=== PATIENT | male | born 1955 | race Caucasian/White ===

== ENCOUNTER 2020-08-02 08:13 | Emergency (ER) | payer OTHER ==
[2020-08-02] MEDS ORDERED: Ondansetron 4 MG/2 ML SDV IVPUSH ONE (08:38)
[2020-08-02] MEDS ORDERED: HYDROmorphone 0.5 MG/0.5 ML Syringe IVPUSH ONE ×2 (08:38→09:51)
[2020-08-02] MEDS ORDERED: Sodium Chloride 0.9% 10 ML Syringe FLUSH PRN (08:38)
[2020-08-02] MEDS ORDERED: FLU VACC QS2020-21(6MOS UP)/PF 60 MCG/0.5 ML SYRINGE IM ONE (08:45)
[2020-08-02] MEDS ORDERED: Sodium Chloride 0.9% 1,000 ML IV SCH (08:45)
--- NOTE | 2020-08-02 09:04 | EDM.PDOC ---
ED HPI GENERAL MEDICAL PROBLEM - General Chief Complaint: Genitourinary Problem Stated Complaint: LOW ABD AND LOW BACK PAIN/NAUSEA Time Seen by Provider: 08/02/20 08:32 Source of Information: Reports: Patient, RN Notes Reviewed - History of Present Illness INITIAL COMMENTS - FREE TEXT/NARRATIVE: 65 yr old male comes in with R back and flank pain radiating to R groin. This started during the night. He did have nausea, vomiting and diarrhea yesterday but that is all better. No current fever or chills. No chest pain or difficulty breathing. Right Lower Back Pain Score (Numeric/FACES): 8 - Related Data Allergies Allergy/AdvReac Type Severity Reaction Status Date / Time hydrocodone Allergy Itching Verified 08/02/20 08:22 Home Meds: Home Meds Acetaminophen/oxyCODONE [Percocet 325-5 MG] 1 each PO Q6HR PRN #20 tab 08/02/20 [Rx] Tamsulosin [Tamsulosin 24 Hr] 0.4 mg PO DAILY #7 cap.er 08/02/20 [Rx] Past Medical History HEENT History: Reports: Glaucoma Genitourinary History: Reports: Renal Calculus - Past Surgical History Male Surgical History: Reports: Lithotripsy ([facility]) Social & Family History - Tobacco Use Tobacco Use Status *Q: Current Every Day Tobacco User Years of Tobacco use: 12 Packs/Tins Daily: 1 - Caffeine Use Caffeine Use: Reports: Coffee - Recreational Drug Use Recreational Drug Use: Yes Drug Use in Last 12 Months: No Recreational Drug Type: Reports: Marijuana/Hashish ED ROS GENERAL - Review of Systems Review Of Systems: See Below Constitutional: Denies: Fever, Chills, Diaphoresis HEENT: Reports: No Symptoms Respiratory: Denies: Shortness of Breath Cardiovascular: Denies: Chest Pain GI/Abdominal: Reports: Abdominal Pain, Diarrhea (yesterday), Nausea, Vomiting (yesterday) Musculoskeletal: Reports: Back Pain (R sided) Skin: Reports: No Symptoms Neurological: Reports: No Symptoms ED EXAM, RENAL/ - Physical Exam Exam: See Below General Appearance: Alert, Moderate Distress Head: Atraumatic Neck: Supple Respiratory/Chest: No Respiratory Distress, Lungs Clear, Normal Breath Sounds Cardiovascular: Regular Rate, Rhythm GI/Abdominal: Soft, Non-Tender. No: Guarding Back Exam: CVA Tenderness (R) (mild) Extremities: Normal Inspection, Normal Range of Motion. No: Pedal Edema, Leg Pain, Redness Neurological: Alert, Oriented, No Motor/Sensory Deficits Skin Exam: Warm, Dry, Normal Color Course - Vital Signs Last Recorded V/S: Last Vital Signs Temp 96.6 F L 08/02/20 08:22 Pulse 76 08/02/20 08:22 Resp 18 08/02/20 08:22 BP 164/87 H 08/02/20 08:22 Pulse Ox 100 08/02/20 08:22 - Orders/Labs/Meds Orders: Active Orders 24 hr Category Date Time Status Peripheral IV Insertion Adult [OM.PC] Stat Oth 08/02/20 08:38 Ordered Labs: Laboratory Tests 08/02/20 Range/Units 10:45 Urine Color Yellow (Yellow) Urine Appearance Clear (Clear) Urine pH 6.0 (5.0-8.0) Ur Specific [place] 1.020 (1.005-1.030) Urine Protein Negative (Negative) Urine Glucose (UA) Negative (Negative) Urine Ketones Negative (Negative) Urine Occult Blood Trace-lysed H (Negative) Urine Nitrite Negative (Negative) Urine Bilirubin Negative (Negative) Urine Urobilinogen 0.2 (0.2-1.0) Ur Leukocyte Esterase Negative (Negative) Urine RBC 0-5 (0-5) /hpf Urine WBC 0-5 (0-5) /hpf Ur Epithelial Cells 0-5 (0-5) /hpf Urine Bacteria Rare (FEW) /hpf Urine Mucus Moderate H (FEW) /hpf Meds: Medications Discontinued Medications Generic Name Dose Route Start Last Admin Trade Name Tiana PRN Reason Stop Dose Admin Hydromorphone HCl 0.5 mg 08/02/20 08:38 08/02/20 08:50 Dilaudid IVPUSH 08/02/20 08:39 0.5 mg ONETIME ONE Administration Hydromorphone HCl 0.5 mg 08/02/20 09:51 08/02/20 09:56 Dilaudid IVPUSH 08/02/20 09:52 0.5 mg ONETIME ONE Administration Sodium Chloride 1,000 mls @ 999 mls/hr 08/02/20 08:45 08/02/20 08:50 Normal Saline IV 999 mls/hr ONETIME MARISOL Administration Influenza Virus Vaccine 60 mcg 08/02/20 08:45 08/02/20 09:56 Fluzone Quad Syringe IM 08/02/20 08:46 60 mcg .ONCE ONE Administration Ondansetron HCl 4 mg 08/02/20 08:38 08/02/20 08:48 Zofran IVPUSH 08/02/20 08:39 4 mg ONETIME ONE Administration Sodium Chloride 10 ml 08/02/20 08:38 08/02/20 08:52 Saline Flush FLUSH 10 ml ASDIRECTED PRN Administration Keep Vein Open - Re-Assessments/Exams Free Text/Narrative Re-Assessment/Exam: 08/02/20 09:52 Pt has a 0.4 mg stone R distal ureter, see Radiology report for details. 08/02/20 13:01. Discharge instr. as documented. Departure - Departure Time of Disposition: 10:15 Disposition: Home, Self-Care 01 Condition: Fair Clinical Impression: Kidney stone - Discharge Information Prescriptions: Tamsulosin [Tamsulosin 24 Hr] 0.4 mg PO DAILY #7 cap.er Acetaminophen/oxyCODONE [Percocet 325-5 MG] 1 each PO Q6HR PRN #20 tab PRN Reason: Pain Instructions: Kidney Stones, [id number] Referrals: Ruben Rajan MD [Primary Care Provider] - Forms: ED Department Discharge Additional Instructions: Strain all urine to watch for stone. If you have not passed the stone by Weds AM Call or see your provider for Urology referral. Drink a moderate amount of water to maintain hydration. Tylenol for mild to moderate pain or percocet (1\2 tab with 500 mg tylenol OK) or 1 full tab q6 to 8 hr if needed for severe pain. Flomax 0.4 mg daily, first dose this afternoon. Prescriptions have been sent to your [facility]. Return to ED if symptoms worsening in any way. Sepsis Event Note (ED) - Evaluation Sepsis Screening Result: No Definite Risk - Focused Exam Vital Signs: Vital Signs Temp Pulse Resp BP Pulse Ox 08/02/20 08:22 96.6 F L 76 18 164/87 H 100 - My Orders Last 24 Hours: My Active Orders 08/02/20 08:38 Peripheral IV Insertion Adult [OM.PC] Stat - Assessment/Plan Last 24 Hours: My Active Orders 08/02/20 08:38 Peripheral IV Insertion Adult [OM.PC] Stat
--- NOTE | 2020-08-02 09:21 | CT ---
CT abdomen and pelvis Technique: Multiple axial sections were obtained from above the dome of the diaphragm inferiorlyl through the pubic symphysis. Intravenous contrast and oral were contrast not given. Reconstructed coronal and sagittal images were obtained. Comparison: Previous CT abdomen and pelvis study of 04/04/13. Findings: Right ureter is prominent down to the bladder. This finding is caused by a 4 mm obstructing stone within the distal right ureter at the UVJ. No additional ureteral calculi are appreciated. There is inflammatory change around the right kidney compatible with the obstruction. Minimal 2 mm nonobstructing stone is seen within the mid right kidney. Dependent atelectasis incidentally noted within both posterior lung bases. Noncontrast appearance of the liver and spleen show no focal parenchymal abnormality. Gallbladder contains no calcified gallstones. Adrenal glands show no nodule. Pancreas appears within normal limits. Aorta shows mild atherosclerotic calcification with no aneurysm. No retroperitoneal adenopathy is seen. Atherosclerotic calcification continues into the iliac vessels. Small fat-containing umbilical hernia is noted. Appendix is seen which is normal. No pelvic mass or adenopathy is seen. Osseous windows were obtained which show scattered degenerative change within the spine. Nothing acute is appreciated. Impression: 1. 4 mm obstructing stone within the distal right ureter close to the UVJ. This finding causes inflammatory change around the right kidney. Minimal nonobstructing calculus is noted within the mid left kidney measuring about 2 mm. 2. Other findings believed to be nonacute as described above. Diagnostic code #3
== END 2020-08-02 11:55 | disposition home or self-care (01) ==
LOC: JD.ED 08:13
DX: N20.2 Calculus of kidney with calculus of ureter (principal); F17.210 Nicotine dependence, cigarettes, uncomplicated; Z88.5 Allergy status to narcotic agent; Z23 Encounter for immunization
CPT/HCPCS: 74176; 81001; 90471; 90686; 96374; 96375; 96376; 99284; J1170; J2405; J7030; 99283; G0008